=== PATIENT | female | born 1930 | race Caucasian/White ===

== ENCOUNTER 2021-08-02 17:25 | Inpatient (IN) | payer MEDICARE, OTHER ==
[~2021-08-02] VITALS: Ht 167.6 cm; Wt 65.3 kg
--- NOTE | 2021-08-02 17:32 | NUR ---
BIBRA C/O L HIP PAIN 10/ S/P FALLING IN THE BATHROOM TODAY. HX OF POLIO AND L LEG WEAKNESS. DENIES HITTING HEAD, DENIES HEADACHE, N/V. DENIES TAKING BLOOD THINNERS. HX OF A FIB, HAS PACEMAKER. A&OX4, APPEARS TO HAVE MILD DEMENTIA, BREATHING IS EVEN AND UNLABORED, PULSES 2+ IN ALL EXTREMITIES, UNABLE TO CHANGE POSITIONS. ON MONITOR.
[2021-08-02] MEDS ORDERED: FENTANYL PF 100MCG/2ML AMPUL ONE ×2 (17:40→18:24)
[2021-08-02] MEDS ORDERED: BISM262O PO (17:44)
[2021-08-02] MEDS ORDERED: SIMV10TA98 PO (17:44)
[2021-08-02] MEDS ORDERED: ONDA4TAB5 PO (17:44)
[2021-08-02] MEDS ORDERED: CALC0.253 PO (17:44)
[2021-08-02] MEDS ORDERED: LINA5TAB PO (17:44)
[2021-08-02] MEDS ORDERED: LISI20TA30 PO (17:44)
[2021-08-02] MEDS ORDERED: DILT120C87 PO (17:44)
[2021-08-02] MEDS ORDERED: LEVO137T24 PO (17:44)
[2021-08-02] MEDS ORDERED: ACET-2605 PO (17:44)
[2021-08-02] MEDS ORDERED: SERT50TA12 PO (17:44)
[2021-08-02] MEDS ORDERED: GABA-532 PO (17:44)
[2021-08-02] MEDS ORDERED: FENTANYL PF 100MCG/2ML AMPUL IM ONE (18:00)
[2021-08-02] MEDS ORDERED: FENTANYL PF 100MCG/2ML AMPUL IV ONE (18:30)
--- NOTE | 2021-08-02 18:39 | NUR ---
RADIOLOGY AT BEDSIDE
--- NOTE | 2021-08-02 18:52 | NUR ---
MRSA SWAB OBTAINED AND SENT TO LAB
--- NOTE | 2021-08-02 19:09 | NUR ---
PT IS BEGINNING TO COMPLAIN OF R KNEE PAIN RATED 7/10. R KNEE SLIGHTLY SWOLLEN. MADE AWARE
--- NOTE | 2021-08-02 19:27 | NUR ---
DR ALLRED SPEAKING WITH DR SCHILLING
[2021-08-02] MEDS ORDERED: HYDROMORPHONE 1 MG/1 ML DISP.SYRIN IV ONE (19:30)
--- NOTE | 2021-08-02 19:30 | NUR ---
RECIEVED REPORT FOR GENIA. PT AWAKE AND ALERT BREATHING EVEN AND UNLABORED. PT ON MONITOR ALL V/S COMPLAINING OF PAIN. MD AWARE.
[2021-08-02] MEDS ORDERED: HYDROMORPHONE 1 MG/1 ML DISP.SYRIN ONE (19:33)
--- NOTE | 2021-08-02 19:37 | NUR ---
CALLED [facility], PAGED JULIETA
--- NOTE | 2021-08-02 19:40 | NUR ---
CALLED [facility] TRANSFER [facility] SPOKE TO [place] STATES UNABLE TO ACCOMODATE LATERAL TRANSFER DUE TO AT CAPACITY
--- NOTE | 2021-08-02 20:50 | NUR ---
recieved bed 103
[2021-08-02] MEDS ORDERED: ACETAMINOPHEN 325 MG TABLET PO PRN (21:00)
[2021-08-02] MEDS ORDERED: ONDANSETRON HCL/PF 4 MG/2 ML VIAL IVP PRN (21:00)
[2021-08-02] MEDS ORDERED: MAG HYDROX/AL HYDROX/SIMETH 30 ML UDC PO PRN (21:00)
[2021-08-02] MEDS ORDERED: ZOLPIDEM TARTRATE 5 MG TABLET PO PRN (21:00)
[2021-08-02] MEDS ORDERED: MAGNESIUM HYDROXIDE 30 ML UDC PO PRN (21:00)
[2021-08-02] MEDS ORDERED: Z GUARD REMEDY 2 OZ OINT TP PRN (21:00)
[2021-08-02] MEDS ORDERED: DEXTROSE 50%-WATER 50 ML DISP.SYRIN IV PRN (21:00)
[2021-08-02 21:25] LABS: BASOPHILS # (AUTO) 0.1 K/uL (0.0-0.2); BASOPHILS % (AUTO) 0.5 % (0.0-2.0); EOSINOPHILS % (AUTO) 0.3 % (0.0-6.0); HEMATOCRIT 35 % (33-45); HEMOGLOBIN 11.6 g/dL (11.5-14.8); LYMPHOCYTES % (AUTO) 7.9 % (20.0-44.0); MEAN CORPUSCULAR HGB CONC 33 g/dl (31.0-36.0); MEAN CORPUSCULAR VOLUME 91 fL (82-100); MONOCYTES % (AUTO) 8.3 % (2.0-12.0); NEUTROPHILS # (AUTO) 10.3 K/uL (1.8-8.9); PLATELET COUNT (AUTO) 248 K/uL (150-450); RED BLOOD CELL COUNT(AUTO) 3.88 MIL/uL (4.0-5.2); WHITE BLOOD COUNT (AUTO) 12.4 K/uL (4.3-11.0)
--- NOTE | 2021-08-02 21:34 | NUR ---
report given to eduar
[2021-08-02 21:37] LABS: ALBUMIN 3.4 g/dL (3.4-5.0); BILIRUBIN,TOTAL 0.5 mg/dL (0.2-1.0); CALCIUM, SERUM 7.8 mg/dL (8.5-10.1); CREATININE 1.1 mg/dL (0.6-1.3); POTASSIUM 4.2 mmol/L (3.5-5.1)
[2021-08-02 21:48] VITALS: BP 175/73
--- NOTE | 2021-08-02 21:48 | NUR ---
SOFTWARE APPLICATIONS SPECIALIST NOTE RECEIVED PATIENT VIA GURNEY. TRANSFERRED PATIENT TO BED WITH NO INJURY. A/O X3, PATIENT IS FORGETFUL. TOLERATING ROOM AIR. RESPIRATIONS ARE EVEN AND UNLABORED. NO S/S SOB NOTED. C/O PAIN WHEN MOVING. IV ACCESS IN LAC#18 PATENT AND SALINE LOCKED. INITIAL PHYSICAL ASSESSMENT COMPLETED AT THIS TIME. PATIENT REFUSED SKIN ASSESSMENT. PATIENT UPSET THAT SHE WAS TRANSFERRED AT THIS HOUR AND WE ARE ASSESS AND ASKING QUESTIONS. VESSEL SCRAPPER HELPER OBTAINED VITALS AND COMPLETED BELONGING LIST. BED IS LOW AND LOCKED, HOB ELEVATED IN SEMI FOWLERS, SIDE RIAL SUP X2, CALL LIGHT WITHIN REACH. EXPLAINED USE. INFORMED PATIENT TO PLEASE CALL IF NEEDS HELP. PATIENT REQUEST HER WAKER, INFORMED HER SHE HAS A FRACTURE AND IS NOT ABLE TO WALK. BED ALARM IS ON. INFORMED PATIENT SHE WILL NEED TO SIGN CONSENTS FOR SURGERY. PATIENT STATES SHE DOES NOT WANT SURGERY. INFORMED SUPERMARKET MANAGER AND NURSING VENTILATING ENGINEER.
--- NOTE | 2021-08-02 21:50 | NUR ---
PT TRANSPORTED TO 103 W/O INCIDENT. ALL PAPERWORK TRANSPORTED WITH PATIENT.
[2021-08-02] MEDS: BLOOD SUGAR DIAGNOSTIC 1 EACH STRIP IN SCH (23:45)
[2021-08-02] MEDS: IV D5/0.45 NACL 1,000 ML IV PRN (23:45)
[2021-08-03] VITALS: BP 147/39
[2021-08-03] MEDS: INSULIN REGULAR, HUMAN 100 UNIT/ML 3 ML VIAL SQ PRN ×3 (00:04→23:18)
[2021-08-03] MEDS ORDERED: ONDANSETRON 4 MG TAB.RAPDIS PO PRN (00:30)
[2021-08-03] MEDS ORDERED: BISMUTH SUBSALICYLATE 262 MG/15 ML BOTTLE PO PRN (00:30)
[2021-08-03] MEDS ORDERED: GABAPENTIN 100 MG CAPSULE PO PRN (00:30)
[2021-08-03] MEDS: MORPHINE SULFATE INJ 2 MG/ML DISP.SYRIN IV PRN ×4 (03:03→16:20)
[2021-08-03 04:00] VITALS: BP 132/55
--- NOTE | 2021-08-03 06:15 | NUR ---
RN NOTE PATIENT RESTING IN BED. A/O X3, FORGETFUL. CONTINUES TO TOLERATE ROOM AIR.NO SOB, MANAGED PAIN WITH MORPHINE. LAC#18 RUNNING D51/2NS@75ML/HR. BED REMAINS LOW AND LOCKED, HOB FLAT, SIDE RIALS UP X2, CALL LIGHT WITHIN REACH. WILL ENDORSE TO ONCOMING SHIFT.
[2021-08-03 06:41] LABS: BASOPHILS # (AUTO) 0.1 K/uL (0.0-0.2); BASOPHILS % (AUTO) 0.6 % (0.0-2.0); EOSINOPHILS % (AUTO) 1.4 % (0.0-6.0); HEMATOCRIT 34 % (33-45); HEMOGLOBIN 11.3 g/dL (11.5-14.8); LYMPHOCYTES # (AUTO) 1.2 K/uL (0.8-4.8); LYMPHOCYTES % (AUTO) 12.1 % (20.0-44.0); MEAN CORPUSCULAR HGB CONC 33 g/dl (31.0-36.0); MEAN CORPUSCULAR VOLUME 93 fL (82-100); MONOCYTES % (AUTO) 9.8 % (2.0-12.0); NEUTROPHILS # (AUTO) 7.5 K/uL (1.8-8.9); NEUTROPHILS % (AUTO) 76.1 % (43.0-81.0); PLATELET COUNT (AUTO) 260 K/uL (150-450); RED BLOOD CELL COUNT(AUTO) 3.66 MIL/uL (4.0-5.2); WHITE BLOOD COUNT (AUTO) 9.9 K/uL (4.3-11.0)
[2021-08-03 06:44] LABS: CALCIUM, SERUM 7.8 mg/dL (8.5-10.1); CREATININE 1.2 mg/dL (0.6-1.3); MAGNESIUM 1.9 mg/dL (1.8-2.4); PHOSPHORUS 3.8 mg/dL (2.5-4.9); POTASSIUM 4.4 mmol/L (3.5-5.1)
[2021-08-03 07:46] LABS: THYROID STIMULATING HORMONE 2.762 uIU/mL (0.358-3.74)
[2021-08-03] MEDS: BLOOD SUGAR DIAGNOSTIC 1 EACH STRIP IN SCH ×4 (07:51→22:03)
--- NOTE | 2021-08-03 07:53 | NUR ---
NURSE OPENING NOTE RECEIVE REPORT FROM OUT GOING NURSE. PATIENT IS A/O X4. PERIOD OF FORGETFUL. BED BOUND AND REFUSED SKIN ASSESSMENT. WILL ATTEMPT ASSESSMENT DURING SHIFT. REFUSED TO SIGN CONSENT FOR SURGERY. WILL INFORM DOCTOR AND REATTEMPT TO HAVE PATIENT SIGN CONSENT. PATIENT IS BED BOUND. SAFETY MEASURE IN PLACE. BED ON THE LOWEST POSITION WITH HOB ELEVATED. CALL LIGHT WITHIN REACH. WILL CONTINUE TO MONITOR.
[2021-08-03 09:46] LABS: THYROID STIMULATING HORMONE 2.869 uIU/mL (0.358-3.74)
[2021-08-03] MEDS: CALCITRIOL 0.25 MCG CAPSULE PO SCH (10:01)
[2021-08-03] MEDS: DILTIAZEM HCL CD 120 MG PO SCH (10:01)
[2021-08-03] MEDS: PANTOPRAZOLE 40 MG VIAL IV SCH (10:02)
[2021-08-03] MEDS: LINAGLIPTIN 5 MG TABLET PO SCH (10:02)
[2021-08-03] MEDS ORDERED: FENTANYL PF 250MCG/5ML AMPUL ONE (10:56)
[2021-08-03] MEDS ORDERED: MIDAZOLAM HCL 2 MG/2ML VIAL ONE (10:57)
[2021-08-03] MEDS ORDERED: ROCURONIUM BROMIDE 50 MG/5 ML ONE (10:57)
[2021-08-03] MEDS ORDERED: TRANEXAMIC ACID 3,000 MG in SODIUM CHLORIDE IRRIG SOLUTION 70 ML IR ONE (11:30)
[2021-08-03 11:43] LABS: MAGNESIUM 2.3 mg/dL (1.8-2.4)
[2021-08-03] MEDS ORDERED: FENTANYL PF 100MCG/2ML AMPUL ONE (13:40)
[2021-08-03] MEDS ORDERED: MORPHINE SULFATE INJ 4 MG/ML DISP.SYRIN IV PRN (17:30)
[2021-08-03] MEDS ORDERED: SIMVASTATIN 10 MG TABLET PO SCH (18:00)
--- NOTE | 2021-08-03 19:36 | NUR ---
NURSE CLOSING NOTE REPORT WAS GIVEN TO ON COMING NURSE. PATIENT IN STABLE CONDITION AT TIME OF REPORT. POST HIP SURGERY. ALL ORDERS IN PLACE. MORPHINE WAS GIVEN FOR PAIN CONTROL AT TIME OF ARRIVAL FROM SURGERY. PATIENT TOLERATE WELL. ON ROOM AIR. D5 1/2 NS RUNNING AT 75ML/HR. NEW IV WAS STARTED ON RIGHT UPPER ARM. FLUSH WELL. ALL SAFETY MEASURE IN PLACE. BED ON LOWEST POSITION WITH HOB ELEVATED AND 3 SIDE RAIL UP. CALL LIGHT WITHIN REACH.
[2021-08-03 20:00] VITALS: BP 135/98
[2021-08-03] MEDS: CEFAZOLIN 2 GM in IV D5W 100 ML IV SCH (20:05)
--- NOTE | 2021-08-03 20:30 | NUR ---
RN NOTE-PT REFUSAL PT HAS PULLED OUT IV SITE, TAKEN ON TELE MONITOR, PT IS VERY ANGRY UNCOOPERATIVE, UPSET ABOUT STAY AT HOSPITAL PT IS ALERT, BUT CONTINUES TO FORGET MULTIPLE CONVERSATIONS REGARDING REORIENTATION EXPLAINED. WHEN ASKED REGARDING REINSERTION, PT REFUSES. NOTIFIED CLAIMS ANALYST DR RENDON REGARDING SITUATION, WILL ASK AGAIN LATER FOR POSSIBLE IV REINSERTION
[2021-08-03] MEDS: LEVOTHYROXINE SODIUM 137 MCG TABLET PO SCH (22:07)
[2021-08-03] MEDS: SERTRALINE HCL 50 MG TABLET PO SCH (22:07)
[2021-08-03] MEDS: LISINOPRIL (20MG) 20 MG TABLET PO SCH (22:08)
--- NOTE | 2021-08-03 22:45 | NUR ---
RN NOTE BLOOD SUGAR 219, COVERED USING SSI ORDERED
--- NOTE | 2021-08-03 23:50 | NUR ---
RN NOTE PT AT THIS TIME AGREED TO IV REINSERTION, PT VERBALIZES SHE IS FORGETFUL AND APOLOGIZES FOR PREVIOUS BEHAVIOR SHE DOES NOT REMEMBER.
[2021-08-04] VITALS (7 sets, daily range): BP systolic 120–156; BP diastolic 58–97
--- NOTE | 2021-08-04 | NUR ---
RN NOTE PT HAS RFA #22 PLACED, IVF RUNNING ORDERED PT PLACED ON SOFT [place] WRIST RESTRAINTS, EDUCATION PROVIDED, PT UNABLE TO COMPREHEND. INFORMED DAUGHTER, ISIDRO.
[2021-08-04] MEDS: IV D5/0.45 NACL 1,000 ML IV PRN (01:52)
[2021-08-04] MEDS: CEFAZOLIN 2 GM in IV D5W 100 ML IV SCH (03:38)
--- NOTE | 2021-08-04 04:03 | NUR ---
RN NOTE PT VERBALIZES 10/10 PAIN, MORPHINE ADMINISTERED PRN ORDERED. VSS. WILL CONT TO MONITOR. CLOSELY.
--- NOTE | 2021-08-04 06:37 | NUR ---
RN CLOSING NOTE PT CONTINUOUSLY FORGETS WHEREABOUTS, DESPITE REORIENTATION. PT REMAINS WITH RESTRAINTS. ON IVF D5 1/2 NS ORDERED. PT HIP REMAINS WITH BLOCK IN BETWEEN LEGS. FAMILY, ISIDRO KEPT UPDATED. TURN AND REPOSITIONED TOLERATED, SAFETY MEASURES IN PLACE. HOB ELEVATED SIDE RAILS UP X2 BED LOCKED IN LOWEST POSITION CALL LIGHT WITHIN REACH. WILL CONT TO MONITOR UNTIL END OF SHIFT, WILL ENDORSE TO DAY SHIFT RN FOR CONTINUATION OF CARE
--- NOTE | 2021-08-04 07:06 | NUR ---
FIELD TRAINING AGENT OPENING NOTE RECEIVED PATIENT RESTING IN BED. PATIENT IS A/O X1-2 WITH PERIODS OF FORGETFUL. PATIENT IS BREATHING EVENLY AND NONLABORED ON ROOM AIR. NO SIGNS OF DISTRESS NOTED. PATIENT DOES NOT SHOW ANY SIGNS OF SYMPTOMS OF PAIN. PATIENT HAS IV ACCESS TO RFA # 22 RUNNING D5 1/2 NS @ 75ML/HR. PATIENT NOTED WITH SOFT WRIST RESTRAINTS FOR SAFETY. WILL PERFORMED SAFETY CHECKS AND RELEASES PER PROTOCOL. SAFETY MEASURE IN PLACE. BED ON THE LOWEST POSITION WITH HOB ELEVATED. CALL LIGHT WITHIN REACH. WILL CONTINUE TO MONITOR.
[2021-08-04] MEDS: BLOOD SUGAR DIAGNOSTIC 1 EACH STRIP IN SCH ×4 (07:40→21:11)
[2021-08-04] MEDS: INSULIN REGULAR, HUMAN 100 UNIT/ML 3 ML VIAL SQ PRN ×4 (07:49→21:14)
[2021-08-04] MEDS: CALCITRIOL 0.25 MCG CAPSULE PO SCH (08:00)
[2021-08-04] MEDS: PANTOPRAZOLE 40 MG VIAL IV SCH (08:00)
[2021-08-04] MEDS: LINAGLIPTIN 5 MG TABLET PO SCH (08:00)
[2021-08-04] MEDS: DILTIAZEM HCL CD 120 MG PO SCH (08:01)
[2021-08-04] MEDS: PANTOPRAZOLE 40 MG TABLET.DR PO SCH (09:13)
--- NOTE | 2021-08-04 09:13 | NUR ---
RN NOTE PANTOPRAZOLE MEDICATION CHANGED FROM IV TO PO, ALREADY WAS GIVEN PO, PHARMACY CALLED [facility] TO START TOMORROW AM. WILL CONTINUE TO MONITOR
[2021-08-04] MEDS: ACETAMINOPHEN ES 500 MG TABLET PO PRN ×2 (10:56→17:44)
[2021-08-04] MEDS: GLUCERNA SHAKE 237 ML CAN PO SCH ×2 (13:05→17:20)
[2021-08-04] MEDS ORDERED: SOD FERRIC GLUC 125 MG in IV NS 0.9% 100 ML IV SCH (14:00)
--- NOTE | 2021-08-04 14:43 | NUR ---
RN NOTE PATIENT NOTED TO HAVE PULLED IV LINE, PRESSURE DRESSING APPLIED. NEW IV ACCESS PLACE ON RFA # 22 GAUGE PATENT AND INTACT. RESTARTED IV FLUIDS. WILL CONTINUE TO MONITOR
[2021-08-04 15:20] LABS: BASOPHILS % (AUTO) 0.1 % (0.0-2.0); HEMATOCRIT 31 % (33-45); HEMOGLOBIN 10.1 g/dL (11.5-14.8); LYMPHOCYTES # (AUTO) 1.2 K/uL (0.8-4.8); LYMPHOCYTES % (AUTO) 7.4 % (20.0-44.0); MEAN CORPUSCULAR HGB CONC 32 g/dl (31.0-36.0); MEAN CORPUSCULAR VOLUME 93 fL (82-100); MONOCYTES # (AUTO) 2.3 K/uL (0.1-1.30); MONOCYTES % (AUTO) 13.5 % (2.0-12.0); NEUTROPHILS # (AUTO) 13.2 K/uL (1.8-8.9); PLATELET COUNT (AUTO) 237 K/uL (150-450); RED BLOOD CELL COUNT(AUTO) 3.36 MIL/uL (4.0-5.2); WHITE BLOOD COUNT (AUTO) 16.7 K/uL (4.3-11.0)
[2021-08-04 15:37] LABS: ALANINE AMINOTRANSFERASE 14 U/L (12-78); ALBUMIN 2.9 g/dL (3.4-5.0); ALKALINE PHOSPHATASE 88 U/L (46-116); ASPARTATE AMINOTRANSFERASE 28 U/L (15-37); BILIRUBIN,TOTAL 0.3 mg/dL (0.2-1.0); CALCIUM, SERUM 7.9 mg/dL (8.5-10.1); CARBON DIOXIDE 19 mmol/L (21-32); CHLORIDE 101 mmol/L (98-107); CREATININE 1.6 mg/dL (0.6-1.3); GLUCOSE 152 mg/dL (74-106); POTASSIUM 3.9 mmol/L (3.5-5.1); SODIUM SERUM 135 mmol/L (136-145); TOTAL PROTEIN, SERUM 7.3 g/dL (6.4-8.2); UREA NITROGEN, BLOOD 32 mg/dL (7-18)
[2021-08-04] MEDS ORDERED: IV NS 0.9% 1,000 ML IV ONE (17:00)
--- NOTE | 2021-08-04 17:56 | NUR ---
RN NOTE MD NOTIFIED OF ELEVATED WBC @ 16 FROM 9.9. MD ORDERED UA. WILL CONTINUE TO MONITOR
[2021-08-04] MEDS ORDERED: SIMVASTATIN 10 MG TABLET PO SCH (18:00)
--- NOTE | 2021-08-04 18:26 | NUR ---
MARINE EQUIPMENT RESEARCH ENGINEER CLOSING NOTE PATIENT RESTING IN BED. PATIENT IS A/O X1-2 WITH PERIODS OF FORGETFUL. PATIENT IS BREATHING EVENLY AND NONLABORED ON ROOM AIR. NO SIGNS OF DISTRESS NOTED. PATIENT DOES NOT SHOW ANY SIGNS OF SYMPTOMS OF PAIN. PATIENT HAS IV ACCESS TO RFA # 22 RUNNING NS @ 100 ML/HR. FC NOTED DRAINING CLEAR YELLOW URINE. PATIENT NOTED WITH SOFT WRIST RESTRAINTS FOR SAFETY. SAFETY CHECKS PERFORMED AND RELEASES PER PROTOCOL. ALL MEDICATIONS GIVEN ORDERED. SAFETY MEASURE IN PLACE. BED ON THE LOWEST POSITION WITH HOB ELEVATED. CALL LIGHT WITHIN REACH. WILL ENDORSE TO ONCOMING SHIFT
--- NOTE | 2021-08-04 19:30 | NUR ---
CALCULATION REVIEWER CLOSING NOTE PATIENT RECEIVED IN BED. PT IS ON ROOM AIR SHOWING NO S/S OF RESP DISTRESS/SOB. BREATHING EVEN AND UNLABORED. NO SIGNS OF RESP DISTRESS. PT IS A/OX1-2. IV ACCESS NOTED ON RFA # 22. LINE FLUSHED, PATENT, AND INTACT WITH NO S/SX OF INFILTRATION. 0.9% NS RUNNING AT 100 ML/HR. CARRENO CATH NOTED. SOFT WRIST RESTRAINTS NOTED. ALL SAFETY MEASURES IMPLEMENTED. WILL CONTINUE TO MONITOR AND ASSESS FOR ANY CHANGES DURING SHIFT.
[2021-08-04 20:42] LABS: BILIRUBIN,URINE NEGATIVE (NEGATIVE); COLOR,URINE YELLOW (YELLOW); LEUKOCYTE ESTERASE ,URINE NEGATIVE (NEGATIVE); NITRITE, URINE NEGATIVE (NEGATIVE); PH,URINE 5.5 (5.0-8.0); PROTEIN,URINE 100 mg/dl (NEGATIVE); UGLUCOSE 100 MG/DL mg/dL (NEGATIVE); UROBILINOGEN,URINE 0.2 EU/dL (0.2)
[2021-08-04 20:59] LABS: BACTERIA,URINE 1+ /HPF (None Seen); RBC,URINE 21-50 /HPF (0-2); SQUAMOUS EPITHELIAL CELL,UR 0-2 /HPF (None Seen)
[2021-08-04] MEDS: SERTRALINE HCL 50 MG TABLET PO SCH (21:03)
[2021-08-04] MEDS: LISINOPRIL (20MG) 20 MG TABLET PO SCH (21:05)
[2021-08-04] MEDS: LEVOTHYROXINE SODIUM 137 MCG TABLET PO SCH (21:05)
[2021-08-04] MEDS ORDERED: QUETIAPINE FUMARATE 25 MG TABLET PO SCH (22:00)
--- NOTE | 2021-08-04 22:05 | NUR ---
RN NOTE REPORT GIVEN TO JOHANNA DE LA CRUZ FOR GENIA.
--- NOTE | 2021-08-04 22:27 | NUR ---
MS RN NOTES RECEIVED REPORT FOR PT FROM JOHANNA LEE PT TRANSFERED TO RM 3 [id number] PT ORIENTED TO ROOM AND UNIT ALL NEEDS TAKEN CARE OF AT THIS TIME. RESTRAINT ON AT THIS TIME. WILL CONTINUE TO MONITOR.
[2021-08-05 00:08] VITALS: BP 120/70
[2021-08-05] MEDS: ACETAMINOPHEN ES 500 MG TABLET PO PRN ×2 (03:18→14:06)
[2021-08-05 04:00] VITALS: BP 123/72
[2021-08-05 04:12] VITALS: BP 123/72
[2021-08-05] MEDS: HYDROCODONE/APAP 5/325MG TABLET PO PRN ×2 (04:42→09:40)
--- NOTE | 2021-08-05 04:43 | NUR ---
MS RN NOTES PRN NORCO GIVEN FOR PAIN 6/10 ON A NUMERIC PAIN SCALE TOLERATED WELL. WILL CONTINUE TO MONITOR.
[2021-08-05] MEDS: INSULIN REGULAR, HUMAN 100 UNIT/ML 3 ML VIAL SQ PRN ×2 (06:31→12:07)
--- NOTE | 2021-08-05 06:58 | NUR ---
MS RN NOTES PT IN BED. PT IS ON ROOM AIR SHOWING NO S/S OF RESP DISTRESS/SOB. BREATHING EVEN AND UNLABORED. NO SIGNS OF RESP DISTRESS. PT IS A/OX1-2. IV ACCESS NOTED ON RFA # 22. LINE FLUSHED, PATENT, AND INTACT WITH NO S/SX OF INFILTRATION CARRENO CATH NOTED. SOFT WRIST RESTRAINTS NOTED. ALL SAFETY MEASURES IMPLEMENTED. WILL ENDORSE CARE TO DAY SHIFT NURSE.
[2021-08-05 07:04] LABS: BASOPHILS % (AUTO) 0.2 % (0.0-2.0); EOSINOPHILS % (AUTO) 0.2 % (0.0-6.0); HEMATOCRIT 32 % (33-45); HEMOGLOBIN 10.6 g/dL (11.5-14.8); LYMPHOCYTES % (AUTO) 14.4 % (20.0-44.0); MEAN CORPUSCULAR HGB CONC 33 g/dl (31.0-36.0); MEAN CORPUSCULAR VOLUME 92 fL (82-100); MONOCYTES # (AUTO) 1.4 K/uL (0.1-1.30); MONOCYTES % (AUTO) 10.5 % (2.0-12.0); NEUTROPHILS # (AUTO) 10.2 K/uL (1.8-8.9); NEUTROPHILS % (AUTO) 74.7 % (43.0-81.0); PLATELET COUNT (AUTO) 206 K/uL (150-450); RED BLOOD CELL COUNT(AUTO) 3.49 MIL/uL (4.0-5.2); WHITE BLOOD COUNT (AUTO) 13.7 K/uL (4.3-11.0)
[2021-08-05 07:23] LABS: CALCIUM, SERUM 7.4 mg/dL (8.5-10.1); CARBON DIOXIDE 19 mmol/L (21-32); CHLORIDE 103 mmol/L (98-107); CREATININE 1.4 mg/dL (0.6-1.3); GLUCOSE 182 mg/dL (74-106); MAGNESIUM 1.8 mg/dL (1.8-2.4); PHOSPHORUS 3.8 mg/dL (2.5-4.9); POTASSIUM 3.8 mmol/L (3.5-5.1); SODIUM SERUM 136 mmol/L (136-145); UREA NITROGEN, BLOOD 30 mg/dL (7-18)
--- NOTE | 2021-08-05 07:28 | NUR ---
MS RN OPENING NOTES RECEIVED PATIENT IN BED AWAKE, A/O X1-2, VERBALLY RESPONSIVE. ON ROOM AIR, NO SOB NOTED, BREATHING EVEN AND UNLABORED, NO SIGNS OF ACUTE DISTRESS NOTED. WITH SL ON RIGHT ARM G#20 PATENT AND INTACT. SOFT WRIST RESTRAINTS IN PLACE. SAFETY MEASURES PROVIDED. BED LOCKED AND IN LOWEST POSITION, SR UP X2, CALL LIGHT PLACED WITHIN EASY REACH. WILL CONTINUE TO MONITOR.
[2021-08-05] MEDS: BLOOD SUGAR DIAGNOSTIC 1 EACH STRIP IN SCH ×2 (07:32→12:04)
[2021-08-05] MEDS: CALCITRIOL 0.25 MCG CAPSULE PO SCH (08:27)
[2021-08-05] MEDS: PANTOPRAZOLE 40 MG TABLET.DR PO SCH (08:27)
[2021-08-05] MEDS: LINAGLIPTIN 5 MG TABLET PO SCH (08:27)
[2021-08-05] MEDS: GLUCERNA SHAKE 237 ML CAN PO SCH ×2 (08:28→12:38)
[2021-08-05 08:55] VITALS: BP 116/49
[2021-08-05 09:00] VITALS: BP 116/50
[2021-08-05] MEDS: DILTIAZEM HCL CD 120 MG PO SCH (09:00)
[2021-08-05] MEDS ORDERED: MAGN400O6 PO (14:48)
[2021-08-05] MEDS ORDERED: Hydrocodone/Apap 5/325MG PO (14:48)
[2021-08-05] MEDS ORDERED: QUET25TA PO (14:48)
[2021-08-05] MEDS ORDERED: CEPH250C PO (14:51)
--- NOTE | 2021-08-05 15:11 | NUR ---
RN DISCHARGED NOTES PT DISCHARGED TO [facility] IN STABLE CONDITION. PT IS A/O X2-3. ABLE TO COMMUNICATE VERBALLY WITH CONFUSION AND FORGETFULNESS. V/S TAKEN, STABLE AND RECORDED. PHOTO OF LEFT HIP SURGICAL SITE TAKEN AND FILED ON HER CHART. ALL BELONGINGS ACCOUNTED FOR AND DAUGHTER BROUGHT THEM HOME THIS MORNING EXCEPT PT'S RING THAT PT IS WEARING ON HER LEFT 4TH FINGER. REPORT GIVEN EARLIER TO JOHANNA LUCERO VIA TELEPHONE. IV ACCESS ON RFA REMOVED, NO ACTIVE BLEEDING NOTED. CARRENO CATHETER REMOVED WITH EASED AND W/O COMPLICATIONS. EXIT FOLDER HANDED TO EMT'S. PT LEFT UNIT AT 1435 VIA RRHODODENDRON ACCOMPANIED BY 3 EMT'S FROM [place]. AND CHARGE NURSE AWARE OF DISCHARGE.
== END 2021-08-05 14:45 | DRG 522 ==
LOC: ER 17:26 → MEDSG1 21:31 → TELE1 08-03 16:38 → TELE 08-04 21:39 → MED 08-05 10:42
PROVIDERS: ADMIT Student in an Organized Health Care Education/Training Program; ATTEND Nurse Practitioner Acute Care
PROC: 0SRS0JZ Replacement of Left Hip Joint, Femoral Surface with Synthetic Substitute, Open Approach (ICD-10-PCS; principal; 2021-08-03)
DX: S72.012A Unspecified intracapsular fracture of left femur, initial encounter for closed fracture (principal); E87.1 Hypo-osmolality and hyponatremia; G93.40 Encephalopathy, unspecified; W01.0XXA Fall on same level from slipping, tripping and stumbling without subsequent striking against object, initial encounter; F32.A Depression, unspecified; I10 Essential (primary) hypertension; E86.0 Dehydration; Z20.822 Contact with and (suspected) exposure to COVID-19; E03.9 Hypothyroidism, unspecified; E78.5 Hyperlipidemia, unspecified; E83.51 Hypocalcemia; E11.40 Type 2 diabetes mellitus with diabetic neuropathy, unspecified; Z79.84 Long term (current) use of oral hypoglycemic drugs; Z79.899 Other long term (current) drug therapy; A80.9 Acute poliomyelitis, unspecified; D72.829 Elevated white blood cell count, unspecified; F03.90 Unspecified dementia, unspecified severity, without behavioral disturbance, psychotic disturbance, mood disturbance, and anxiety; E88.09 Other disorders of plasma-protein metabolism, not elsewhere classified; Y92.099 Unspecified place in other non-institutional residence as the place of occurrence of the external cause; Z86.12 Personal history of poliomyelitis
CPT/HCPCS: 36415; 71045-TC; 73020; 73502; 80048-TC; 80053-TC; 80061-TC; 81001; 82728-TC; 82962-TC; 83540-TC; 83735-TC; 84100-TC; 84439-TC; 84443-TC; 85025-TC; 85730-TC; 86850-TC; 87081-TC; 88305-TC; 88311-TC; 93307-TC; 97112-TC; 97116-TC; 97530-TC; A4217; A6209; A6253; A6407; C1776; C9113; C9803; G0378; J0690; J1100; J1170; J1815; J1885; J2250; J2270; J2370; J2405; J2916; J3010; J3490; J7030; J7060; U0003